=== PATIENT | female | born 1995 | race Caucasian/White ===

== ENCOUNTER 2020-04-09 23:02 | Emergency (ER) | payer OTHER ==
[~2020-04-09] VITALS: Ht 172.7 cm; Wt 74.8 kg
[~2020-04-09 23:02] MED LIST: CAMRESE 0.15-01 EAC1; HYDR1TAB94 PO; HYDROXYZINE PAM25 MG PO; MOBIC15 MG PO; MONO-LINYAH 281 EACH PO; Ventolin/Prove6.7 GM INH; ZOLOFT50 MG PO
[2020-04-09] MEDS ORDERED: GABA300 PO (23:17)
== END 2020-04-10 00:53 | disposition home or self-care (01) ==
LOC: ER 23:02
DX: Q79.60 Ehlers-Danlos syndrome, unspecified (principal); G89.4 Chronic pain syndrome; Z79.899 Other long term (current) drug therapy
CPT/HCPCS: 96372; 99283-25; J1790; J1885